=== PATIENT | female | born 2000 | race Hispanic/Latino ===

== ENCOUNTER 2019-08-19 01:57 | Observation (INO) | payer SELFPAY ==
--- NOTE | 2019-08-19 02:45 | PDOC.FPRHP ---
- History of Present Illness Chief Complaint: snake bite History of Present Illness: 18yo previously healthy female presents as transfer from [facility] for snake bite. Per patient report and EDMD, patient was getting home at about 2300 when she stepped out of her car and felt a sharp pain in the L foot. Did not see the snake itself but states that it felt like a snake bit her. She presented to [place] [facility] where puncture wound was observed and edema marked, after observation edema had spread thus 4 vials of crofab was given and patient was transferred to [facility] for further eval and management. At presentation patient endorses moderate pain of LLE, swelling to the knee, and decreased movement 2/2 pain. No fever/chills. Mild nausea with pain meds. ED Course: Given 4 vials Crofab. Morphine 4mg x2, fenatlynl 50mcg, and zofran. - Allergies/Adverse Reactions Allergies Allergy/AdvReac Type Severity Reaction Status Date / Time No Known Allergies Allergy Unverified 08/19/19 03:05 - Home Medications Medication Instructions Recorded Confirmed Type No Known 08/19/19 08/19/19 History - History PMHx: none PSHx: none FHx: denies Social: No tob or illicits. States she drinks occasionally and had 2 beers earlier in the night. - Review of Systems General: denies: fever/chills, weight/appetite/sleep changes, night sweats, fatigue Eyes: denies: vision changes ENT: denies: nasal congestion, rhinorrhea Respiratory: denies: cough, congestion, shortness of breath Cardiovascular: denies: chest pain, palpitation Gastrointestinal: reports: nausea. denies: vomiting, diarrhea, constipation, abdominal pain Skin: reports: lesions, other (per HPI) Musculoskeletal: reports: pain Neurological: denies: numbness - Vital signs BP: 118/75 HR: 102 RR: 24 Tmax: 99.2 Pox: 100% on RA Wt: 73kg - Physical Exam Constitutional: NAD, awake, alert and oriented, well developed HEENT: PERRLA, EOMI, conjunctiva clear, MMM Neck: supple, trachea midline Heart: normal S1/S2, no murmurs/rubs/gallops, other (tachycarida, regular rhythm ) Lungs: CTAB, no respiratory distress, good air movement, no rales/rhonchi, no wheezing Abdomen: soft, non-tender, bowel sounds present, no masses/distention Musculoskeletal: normal structure, normal tone Neurological: no focal deficit, normal sensation -Skin: Puncture wound at base of 3rd digit on L foot. No erythema. Non-pitting edema to left of L knee as compared to R. Tender to light palpation of L leg and foot. 2+ dorsalis pedis pulse of L foot. Intact ability to move LLE digits. No blanching noted. No purpura or echymosis. Psychiatric: normal mood and affect FMR H&P: Results - Labs Result Diagrams: 08/19/19 06:53 08/19/19 06:53 FMR H&P: A/P - Problem List (1) Snake bite Current Visit: Yes Status: Acute Code(s): W59.11XA - BITTEN BY NONVENOMOUS SNAKE, INITIAL ENCOUNTER - Plan 18yo previously healthy female presents for snake bite. #Snake Bite Envenomation - suspected [place] - Initial swelling marked by EDMD, increase swelling and pain - Given 4 vials Crofab in outside ED @ 1240 on 08/18 - At presentation, increased swelling to left of knee but stable over past hour - Poison control called for recommendations -> rec 4 additional vials of crofab , monitoring 1 hour post administration and if sxs stable, cont with 2vials crofab q6hrs x3 doses, if edema or sxs worsen, call poison control for further recs with likely administration of 4 additional crofab vials - Coag panel, lytes, and LFTs WNL at presentation - Will repeat Coag panel, CMP, CBC, CPK 6 hours post initial crofab dose, if WNL do not need to trend - Morphine prn pain - monitor for sxs of compartment syndrome - currently freely mobile digits and 2 + pulses PCP: [facility] Code: Full IVF: SL Diet: Regular VTE: None - low risk Disposition/LOS: Admit to medical obs for snake bite, cont crofab and monitoring. Poison control recs given. FMR H&P: Upper Level - Plan Date/Time: 08/19/19 0245 Alexsandra Silva, have evaluated this patient and agree with findings/plan as outlined by policy intern resident. Pertinent changes/additions are listed here. 18 yo F is transferred for snake bite that occurred around 11pm tonight. Was getting out of her car and felt something bite her left foot. It was dark, she did not see the snake but knows it was a snake bite. ER report says 1 fang was stuck in flip flop and patient has 1 puncture wound. Patient reports worsening pain that is now up to knee. Reports feeling chilled. ED: Morphine 4mg x2, fentanyl 50mcg, crofab, 1L NS, Benadryl, tetanus VS: 118/75, 24, 106, 99.2, 100% on RA PE: Gen: NAD, resting in bed Lungs: CTAB Heart: sinus tachycardia, no murmur Ext: LLE with swelling up to upper calf, no erythema, ecchymosis. Small puncture wound near base of 3rd digit. Pulse full. Patient able to wiggle toes. Very tender to light palpation. Swelling has extended since 1st crofab dose marking. 18 yo F admitted for snake envenomation and continued crofab treatment. Snake Envenomation - s/p 4 vials crofab @ 12:40. Poison control contacted. Repeat 4 vial dose now, then swelling border to be marked when administration complete. One hour after this reassess-if swelling extends again will need to give another 4 vial dose. If swelling does not extend at that time, will plan for 2 vials q6h for 3 doses. - VSS, Initial coag studies all normal. Continue to closely monitor swelling progression. - Repeat labs 6 hours after initial dose, ~7:00 - Pain control with IV morphine Diet: Regular Code: FULL PCP: MARY JO OOT Attending: Salty Dispo: Admit to medical floor for observation, expected stay <48h. Addendum - Attending - Attending Attestation Date/Time: 08/19/19 1971 I personally evaluated the patient and discussed the management with Dr. Sam Mejia I agree with the History, Examination, Assessment and Plan documented above with any addition or exceptions noted below - 18 yo female with snakebite to left foot. Received crofab in outside ER and additional dose here due to increased swelling. Currently states pain is much improved and swelling has improved. PMH/PSH/All/Meds reviewed and agree with resident's documentation. Afebrile VSS. Exam repeated by me and agree with resident's findings. Labs- PT/ INR normal. A/P: 1) Snakebite - improved. Monitor overnight and anticipate d/c home in AM. Crutches for ambulation.
[2019-08-19] MEDS ORDERED: Ondansetron ODT 4 MG TAB PO PRN (02:56)
[2019-08-19] MEDS ORDERED: Calcium Carbonate 500 MG ChewTAB PO PRN (02:56)
[2019-08-19] MEDS ORDERED: Ondansetron PF 4 MG/2 ML Vial IVP PRN (02:56)
[2019-08-19] MEDS ORDERED: Acetaminophen 325 MG TAB PO PRN (02:56)
[2019-08-19] MEDS ORDERED: Crotalidae Polyvlnt Antivenin 4 GM in Sodium Chloride 0.9% 250 ML 250 ML IVPB SCH (03:00)
[2019-08-19 03:19] VITALS: BMI 27.8
[2019-08-19] MEDS: Morphine 4 MG/ML VIAL SLOW IVP PRN ×3 (05:51→18:21)
[2019-08-19 07:03] LABS: #Eosinphils 0.1 thou/uL (0.0-0.7); #Lymphocytes 4.2 thou/uL (1.20-3.40); #Monocytes 0.9 thou/uL (0.11-0.59); #Neutrophils 5.6 thou/uL (1.40-6.50); %Basophils 0.3 % (0.0-1.0); %Eosinophils 1.2 % (0.0-10.0); %Lymphocytes 38.9 % (28.0-48.0); %Monocytes 8.1 % (0.0-4.0); %Neutrophils 51.5 % (31.0-61.0); Mean Corpuscular HGB CONC 32.6 g/dL (32.0-36.0); Mean Corpuscular Hemoglobin 25.9 pg (25.0-35.0); Mean Corpuscular Volume 79.3 fL (78.0-98.0); Mean Platelet Volume 7.5 fL (7.4-10.4); Platelet Count 295 thou/uL (130-400); RBC Distribution Width 13.9 % (11.5-14.5); Red Blood Cell (RBC) Count 3.87 mill/uL (4.00-5.20); White Blood Cell (WBC) Count 10.9 thou/uL (4.8-10.8)
[2019-08-19 07:29] LABS: ALT (SGPT) 8 U/L (8-55); AST (SGOT) 10 U/L (5-34); Albumin 3.5 g/dL (3.5-5.0); Alkaline Phosphatase 66 U/L (40-100); Anion Gap 11 mmol/L (10-20); BUN (Urea Nitrogen) 10 mg/dL (7.0-18.7); Bilirubin, Total 0.2 mg/dL (0.2-1.2); CK (CPK) 45 U/L (29-168); Calc. Creatinine Clearance 143 mL/min (70-130); Calcium 7.9 mg/dL (7.8-10.44); Carbon Dioxide 23 mmol/L (22-29); Chloride 111 mmol/L (98-107); Estimated GFR-MDRD Greater than 90; Globulin 2.7 g/dL (2.4-3.5); Glucose 97 mg/dL (70-105); Potassium 3.7 mmol/L (3.5-5.1); Protein, Total 6.2 g/dL (6.0-8.3); Sodium 141 mmol/L (136-145)
[2019-08-19 07:34] LABS: INR-International Normal Ratio 1.1; PTT 29.4 SEC (22.9-36.1); Prothrombin Time 13.8 SEC (12.0-14.7)
[2019-08-19 10:08] LABS: Bacteria/HPF 1+ HPF (None Seen); Bilirubin Negative (Negative); Blood, Urine Negative (Negative); Clarity Clear (Clear); Glucose, Urine (Dipstick) Normal (Negative); Leukocyte Negative Leu/uL (Negative); Nitrite 2+ (Negative); Protein, Urine (Dipstick) 20 mg/dL (Neg-Trace); RBC/HPF 0-3 HPF (0-3); Squamous Epithelial 0-3 HPF (0-3); Urobilinogen Normal mg/dL (Less than 2); WBC/HPF 0-3 HPF (0-3)
[2019-08-19 10:09] LABS: Urine Culture Reflex Yes Yes
--- NOTE | 2019-08-20 06:55 | PDOC.FM ---
- Subjective Subjective: Doing well this morning. States she is pain-free unless she attempts to walk on the foot. She has crutches at bedside. - Objective MAR Reviewed: Yes Vital Signs & Weight: Vital Signs (12 hours) Temp Pulse Resp BP Pulse Ox 08/20/19 03:00 97.9 F 73 18 116/76 100 08/19/19 23:00 97.9 F 89 18 116/76 100 08/19/19 20:00 99 08/19/19 19:00 97.9 F 75 18 107/72 99 Weight Weight 73.709 kg I&O: 08/18/19 08/19/19 08/20/19 06:59 06:59 06:59 Output Total 300 Balance -300 Result Diagrams: 08/19/19 06:53 08/19/19 06:53 Phys Exam - Physical Examination Constitutional: NAD HEENT: PERRLA, moist MMs Neck: no nodes, no JVD, supple, full ROM Respiratory: no wheezing, no rales, no rhonchi, clear to auscultation bilateral Cardiovascular: RRR, no significant murmur, no rub Gastrointestinal: soft, non-tender, no distention Musculoskeletal: pulses present Neurological: non-focal, normal sensation, moves all 4 limbs Psychiatric: normal affect, A&O x 3 Skin: no rash, normal turgor Dx/Plan (1) Snake bite Code(s): W59.11XA - BITTEN BY NONVENOMOUS SNAKE, INITIAL ENCOUNTER Status: Acute - Plan Plan: 18yo previously healthy female presents for snake bite. Snake Bite Envenomation - suspected [place] - Initial swelling marked by EDMD, increase swelling and pain - Given 4 vials Crofab in outside ED @ 1240 on 08/18 - At presentation, increased swelling to left of knee but stable over past hour - Poison control called for recommendations -> rec 4 additional vials of crofab. - Coag panel, lytes, and LFTs WNL at presentation and on repeat after crofab. - Swelling significantly improved. Likely stable for d/c today. PCP: [facility] Code: Full IVF: SL Diet: Regular VTE: None - low risk Addendum - Attending - Attending Attestation Date/Time: 08/20/19 1127 I personally evaluated the patient and discussed the management with Dr. Borjas I agree with the History, Examination, Assessment and Plan documented above with any addition or exceptions noted below - Patient wihtout complaints. Pain well controlled. Able to ambulate with crutches. Afebrile VSS. A/P: 1) Snakebite - Swelling stable and pain controlled. D/c home today. 2) UTI- d/c home with po abx.
[2019-08-20 11:05] VITALS: BP 108/72; TEMP 98.1
--- NOTE | 2019-08-21 14:13 | DIS ---
DATE OF ADMISSION: 08/19/2019 DATE OF DISCHARGE: 08/20/2019 ADMITTING ATTENDING: Michael Crandall MD DISCHARGE ATTENDING: Sonal Pond MD RESIDENT: Flor Borjas MD CONSULT: None. PROCEDURES: None. PRIMARY DIAGNOSIS: Snake envenomation. SECONDARY DIAGNOSIS: None. DISCHARGE MEDICATION: Macrobid 100 mg b.i.d. for 5 days. DISCONTINUED MEDICATION: None. HPI/HOSPITAL COURSE: Ms. Meyer is a 18-year-old previously healthy female, who was sent by transfer from [place] [facility] after being bit by a snake around 11 p.m. at night when she stepped out of her car. She was given four vials of CroFab antivenom in [place]. The edema and erythema continued to spread despite CroFab and she was transferred to [place] for further monitoring. In the [place] ED she received four more vials of CroFab and pain control with morphine and fentanyl. Her pain considerably improved with medication. The swelling continued to decrease. On the day of discharge, the swelling has significantly decreased. PT was consulted, fitted her for crutches for use when she went home. The patient was discharged in good condition. DISPOSITION: Stable. DISCHARGE INSTRUCTIONS: 1. Location: Home. 2. Diet: Regular. 3. Activity: Ad naomy. 4. Followup: Follow up with primary care physician within 7 days. Job ID: [id number]
== END 2019-08-20 12:23 | disposition home or self-care (01) ==
LOC: ERS 01:57 → T4-B 02:21
PROVIDERS: ADMIT Family Medicine; ATTEND Family Medicine
DX: T63.001A Toxic effect of unspecified snake venom, accidental (unintentional), initial encounter (principal); M79.672 Pain in left foot; M25.462 Effusion, left knee; S91.332A Puncture wound without foreign body, left foot, initial encounter
CPT/HCPCS: 36415; 80053; 81001; 82550; 85025; 85610; 85730; 87077; 87086; 87186; 96374; 96375; 96376; 99284; G0378; J0840; J2270; J2405; J7050

== ENCOUNTER 2020-10-15 03:07 | Emergency (ER) | payer SELFPAY ==
[2020-10-15 03:48] LABS: Pregnancy Test - Urine (BHCG) Negative (Negative); Pregu Control Background? CLEAR/WHITE (CLR/WHITE); Pregu Control Bar Appear? YES (CONTROL BAR); Specific Gravity 1.029 (1.002-1.036)
== END 2020-10-15 04:20 | disposition home or self-care (01) ==
LOC: ERS 03:07
DX: N93.9 Abnormal uterine and vaginal bleeding, unspecified (principal)
CPT/HCPCS: 81025; 99283

== ENCOUNTER 2020-10-16 12:49 | Emergency (ER) | payer SELFPAY ==
[2020-10-16 13:12] LABS: #Eosinphils 0.1 thou/uL (0.0-0.7); #Lymphocytes 1.9 thou/uL (1.20-3.40); #Monocytes 0.8 thou/uL (0.11-0.59); #Neutrophils 8.4 thou/uL (1.40-6.50); %Basophils 0.2 % (0.0-1.0); %Eosinophils 0.5 % (0.0-10.0); %Lymphocytes 16.8 % (21.0-51.0); %Monocytes 6.9 % (0.0-10.0); %Neutrophils 75.6 % (42.0-75.0); Hemoglobin 10.7 g/dL (12.0-16.0); Mean Corpuscular HGB CONC 32.9 g/dL (32.0-36.0); Mean Corpuscular Hemoglobin 25.8 pg (27.0-31.0); Mean Corpuscular Volume 78.5 fL (78.0-98.0); Platelet Count 346 thou/uL (130-400); RBC Distribution Width 14.1 % (11.5-14.5); Red Blood Cell (RBC) Count 4.16 mill/uL (4.20-5.40); White Blood Cell (WBC) Count 11.1 thou/uL (4.8-10.8)
[2020-10-16 13:18] LABS: BHCG - Serum Negative (NEGATIVE); Pregs Control Background? CLEAR/WHITE (CLR/WHITE); Pregs Control Bar Appear? YES (CONTROL BAR)
[2020-10-16 13:34] LABS: ALT (SGPT) 14 U/L (8-55); AST (SGOT) 17 U/L (5-34); Albumin 4.2 g/dL (3.5-5.0); Alkaline Phosphatase 80 U/L (40-110); Anion Gap 15 mmol/L (10-20); BUN (Urea Nitrogen) 12 mg/dL (7.0-18.7); Bilirubin, Total 0.4 mg/dL (0.2-1.2); Calc. Creatinine Clearance 0 mL/min (70-130); Calcium 9.3 mg/dL (7.8-10.44); Carbon Dioxide 22 mmol/L (22-29); Chloride 105 mmol/L (98-107); Globulin 3.4 g/dL (2.4-3.5); Glucose 72 mg/dL (70-105); Potassium 3.9 mmol/L (3.5-5.1); Protein, Total 7.6 g/dL (6.0-8.3); Sodium 138 mmol/L (136-145)
[2020-10-16 14:31] LABS: Bacteria/HPF None Seen HPF (None Seen); Bilirubin Negative (Negative); Blood, Urine 3+ (Negative); Clarity Clear (Clear); Glucose, Urine (Dipstick) Normal (Negative); Ketone, Urine Negative (Negative); Leukocyte Negative Leu/uL (Negative); Nitrite Negative (Negative); Protein, Urine (Dipstick) 20 mg/dL (Neg-Trace); RBC/HPF Greater than 50 HPF (0-3); Specific Gravity, Urine 1.028 (1.002-1.036); Squamous Epithelial 0-3 HPF (0-3); WBC/HPF 0-3 HPF (0-3)
== END 2020-10-16 17:14 | disposition home or self-care (01) ==
LOC: ERS 12:49
DX: R55 Syncope and collapse (principal); S09.90XA Unspecified injury of head, initial encounter; W22.8XXA Striking against or struck by other objects, initial encounter
CPT/HCPCS: 36415; 70450; 71045; 80053; 81003; 81015; 83880; 84484; 84703; 85025; 85379; 93005; 93306